=== PATIENT | male | born 1980 | race African-American/Black ===

== ENCOUNTER 2019-11-10 20:42 | Emergency (ER) | END 2019-11-10 21:40 | disposition home or self-care (01) | DX: S01.112A Laceration without foreign body of left eyelid and periocular area, initial encounter (principal); S01.412A Laceration without foreign body of left cheek and temporomandibular area, initial encounter; Y08.89XA Assault by other specified means, initial encounter; Y93.89 Activity, other specified; Y92.89 Other specified places as the place of occurrence of the external cause; Y99.8 Other external cause status | CPT/HCPCS: 12013; 99284; J3490 ×2 ==